=== PATIENT | male | born 1995 | race Caucasian/White ===

== ENCOUNTER 2025-01-22 23:20 | Inpatient (IN) | payer MEDICAID ==
[~2025-01-22] VITALS: Ht 182.9 cm; Wt 88.5 kg
[2025-01-22 23:43] VITALS: O2SAT 98
[2025-01-23 00:33] LABS: BASOPHILS % 0.7 % (0.0-2.0); EOSINOPHILS % 0.6 % (0.0-5.0); HEMATOCRIT. 38.6 % (42.0-52.0); HEMOGLOBIN. 12.7 g/dL (14.0-18.0); MEAN CORPUSCULAR VOLUME 90.8 fL (80.0-94.0); MONOCYTES % 6.4 % (2.0-8.0); NEUTROPHILS % 82.3 % (40.0-76.0); PLATELET 272 x1000/uL (130-400); RED BLOOD CELL COUNT 4.25 mill/uL (4.7-6.1); RED CELL DISTRIBUTION WIDTH 13.5 % (11.6-14.6); WHITE BLOOD COUNT 16.7 x1000/uL (4.5-11.0)
[2025-01-23 00:41] LABS: CHLORIDE 106 mEq/L (98-107); POTASSIUM 3.5 mEq/L (3.5-5.1); SODIUM 141 mEq/L (136-145)
[2025-01-23 00:42] LABS: CALCIUM 8.8 mg/dL (8.7-10.4); CARBON DIOXIDE 25 mEq/L (21-32)
[2025-01-23 00:47] LABS: GLUCOSE 112 mg/dL (70-105); UREA NITROGEN BLOOD 17 mg/dL (9-23)
[2025-01-23] MEDS: MORPHINE SULFATE 4 MG/ML INJ (FOR IV/IM USE) IV STA (01:19)
[2025-01-23] MEDS: ONDANSETRON HCL 4MG/2ML INJ IV STA (01:19)
[2025-01-23] MEDS: SODIUM CHLORIDE 0.9% 1,000 ML IV ONE (01:21)
[2025-01-23] MEDS: VANCOMYCIN 1G PREMIX 200 ML IV SCH (01:22)
[2025-01-23] MEDS: AMPICILLIN SOD/SULBACTAM NA 3 G in SODIUM CHLORIDE 0.9% 100 ML IV SCH (01:26)
[2025-01-23] MEDS ORDERED: CLONIDINE 0.1MG TABLET PO PRN (01:45)
[2025-01-23] MEDS ORDERED: ONDANSETRON HCL 4MG/2ML INJ IV PRN (01:45)
[2025-01-23] MEDS ORDERED: DOCUSATE SODIUM 100MG CAPSULE PO PRN (01:45)
[2025-01-23] MEDS ORDERED: GUAIFENESIN 200MG/10ML SUGAR FREE UDC PO PRN (01:45)
[2025-01-23] MEDS ORDERED: IPRATROPIUM/ALBUTEROL 0.5-3(2.5)MG/3ML NEB HHN PRN (01:45)
[2025-01-23 04:18] VITALS: BP 103/69; PULSE 76; RESP 16; TEMP 36.7
[2025-01-23] MEDS: PIPERACILLIN/TAZO 3.375G/50ML 50 ML IV SCH (06:52)
[2025-01-23] MEDS: VANCOMYCIN 1GM/200ML PMX (BAXTER) IV SCH (06:53)
[2025-01-23] MEDS: PANTOPRAZOLE 40MG DR TABLET PO SCH (07:20)
[2025-01-23] MEDS: ACETAMINOPHEN 325MG TABLET PO PRN (09:51)
[2025-01-23 12:00] VITALS: BP 120/72; PULSE 60; RESP 18; TEMP 36.7; O2SAT 98
[2025-01-23 12:09] LABS: CREATINE KINASE 227 IU/L (46-171)
[2025-01-23 16:00] VITALS: BP 111/69; PULSE 57; RESP 18; TEMP 36.7; O2SAT 100
[2025-01-24 04:00] VITALS: BP 103/56; PULSE 55; RESP 20; TEMP 36.5; O2SAT 99
[2025-01-24] MEDS ORDERED: DOXY100C5 MT (10:27)
== END 2025-01-24 09:01 | disposition left against medical advice (07) | DRG 383 ==
LOC: ER 23:20 → 6EST 01-23 00:55 → ENRESERV 01-23 03:07
PROVIDERS: ADMIT Internal Medicine; ATTEND Internal Medicine
DX: L03.116 Cellulitis of left lower limb (principal); D64.9 Anemia, unspecified; D72.829 Elevated white blood cell count, unspecified; F17.210 Nicotine dependence, cigarettes, uncomplicated; S89.82XA Other specified injuries of left lower leg, initial encounter; R73.9 Hyperglycemia, unspecified; X58.XXXA Exposure to other specified factors, initial encounter; Y93.89 Activity, other specified; Y92.89 Other specified places as the place of occurrence of the external cause; Y99.8 Other external cause status; Z53.29 Procedure and treatment not carried out because of patient's decision for other reasons
CPT/HCPCS: 36415; 80048; 82550; 83605; 84145; 85025; 93970; 97162; 97165; 99285; A4606; J0295; J2270; J2405; J2543; J3370; J7030; J7050